=== PATIENT | female | born 1950 | race Caucasian/White ===

== ENCOUNTER 2020-10-21 14:53 | Observation (INO) ==
[2020-10-21] MEDS ORDERED: Ipratropium/Albuterol Neb 3 ML IH ONE (15:14)
[2020-10-21] MEDS ORDERED: methylPREDNISolone 125 MG/2 ML VIAL IVP ONE (15:14)
[2020-10-21 15:29] LABS: Basophils # 0.1 K/mcL (0.0-0.2); Basophils % 0.8 %; Eosinophils # 0.2 K/mcL (0.0-0.6); Eosinophils % 2.8 %; Hematocrit 40.4 % (35.3-44.9); Hemoglobin 13.4 g/dL (11.5-15.4); Immature Granulocytes % 0.6 % (0-4); Lymphocytes # 2.7 K/mcL (0.6-4.6); Lymphocytes % 32.2 %; Mean Corpuscular HGB Conc 33.2 g/dL (31.6-35.5); Mean Corpuscular Hemoglobin 29.7 pg (28.0-33.3); Mean Corpuscular Volume 89.6 fL (83.0-100.0); Mean Platelet Volume 10.5 fL (9.4-12.4); Monocytes # 0.7 K/mcL (0.0-1.3); Monocytes % 8.3 %; Neutrophils # 4.6 K/mcL (1.6-8.9); Platelet Count 247 K/mcL (140-400); Red Blood Count 4.51 M/mcL (3.82-4.97); Red Cell Distribution Width 13.2 % (11.5-14.5); Segmented Neutrophils % 55.3 %; White Blood Count 8.3 K/mcL (4.3-11.1)
[2020-10-21 15:44] LABS: BUN/Creatinine Ratio 17 (6-26); Blood Urea Nitrogen 15 mg/dL (8-23); Calcium 9.6 mg/dL (8.6-10.3); Carbon Dioxide 29 mEq/L (23-29); Chloride 100 mEq/L (98-107); Glucose 198 mg/dL (70-105); Osmolality,Calculated 294 (280-300); Potassium 3.8 mEq/L (3.5-5.1); Sodium 139 mEq/L (136-145); eGFR For African Americans > 60 (> 60); eGFR For Non-African Americans > 60 (> 60)
[2020-10-21 15:45] LABS: Prothrombin Time 11.6 Seconds (9.4-12.1)
[2020-10-21 15:45] LABS: ABG Base Excess 2 mEq/L (-2 to 3); ABG HCO3 27 mEq/L (21-27); ABG Oxygen Saturation 91 % (95-98); ABG PCO2 43 mmHg (35-45); ABG PH 7.41 pH Units (7.32-7.45); ABG PO2 62 mmHg (85-104); ABG TCO2 29 mEq/L (20-26)
[2020-10-21] MEDS ORDERED: Isovue-370 500 ML BOTTLE IVP ONE (15:55)
[2020-10-21] MEDS ORDERED: *HR* Heparin 5,000 UNIT/ML VIAL IVP ONE (16:38)
[2020-10-21] MEDS ORDERED: *HR* Heparin 5,000 UNIT/ML VIAL IVP PRN ×2 (16:38)
[2020-10-21] MEDS ORDERED: Heparin 25,000UNIT/250ML 1/2NS 25,000 UNIT/250 ML IV.SOLN IVC SCH (16:45)
[2020-10-21] MEDS: Heparin 25,000UNIT/250ML 1/2NS 25,000 UNIT/250 ML IV.SOLN IVC SCH (16:59)
[2020-10-21] MEDS ORDERED: Acetaminophen 325 MG TABLET PO PRN (17:12)
[2020-10-21] MEDS ORDERED: Ondansetron 4 MG/2 ML VIAL IVP PRN (17:12)
[2020-10-21] MEDS ORDERED: Naloxone 0.4 MG/ML INJ IVP PRN (17:12)
[2020-10-21] MEDS ORDERED: *HR* Dextrose 50 % in Water (Vial) 50 ML VIAL IVP PRN (17:25)
[2020-10-21] MEDS ORDERED: D5% in Water 1,000 ML IVC PRN (17:25)
[2020-10-21] MEDS ORDERED: Dextrose Gel 15 GM/37.5 ML TUBE PO PRN ×2 (17:25)
[2020-10-21] MEDS: Insulin LISPRO 300 UNITS/3 ML VIAL SUBQ SCH (18:11)
[2020-10-21] MEDS: Metoprolol 100 MG TABLET PO SCH (21:56)
[2020-10-21] MEDS ORDERED: Insulin LISPRO 300 UNITS/3 ML VIAL SUBQ SCH (22:00)
[2020-10-22] MEDS: Heparin 25,000UNIT/250ML 1/2NS 25,000 UNIT/250 ML IV.SOLN IVC SCH (05:48)
[2020-10-22 05:58] LABS: Basophils % 0.1 %; Hematocrit 41.8 % (35.3-44.9); Hemoglobin 13.7 g/dL (11.5-15.4); Immature Granulocytes % 0.6 % (0-4); Lymphocytes # 1.7 K/mcL (0.6-4.6); Lymphocytes % 19.3 %; Mean Corpuscular HGB Conc 32.8 g/dL (31.6-35.5); Mean Corpuscular Hemoglobin 29.1 pg (28.0-33.3); Mean Corpuscular Volume 88.7 fL (83.0-100.0); Monocytes # 0.3 K/mcL (0.0-1.3); Monocytes % 3.6 %; Neutrophils # 6.8 K/mcL (1.6-8.9); Platelet Count 274 K/mcL (140-400); Red Blood Count 4.71 M/mcL (3.82-4.97); Red Cell Distribution Width 13.1 % (11.5-14.5); Segmented Neutrophils % 76.4 %; White Blood Count 8.9 K/mcL (4.3-11.1)
[2020-10-22 06:20] LABS: BUN/Creatinine Ratio 18 (6-26); Blood Urea Nitrogen 13 mg/dL (8-23); Calcium 9.7 mg/dL (8.6-10.3); Carbon Dioxide 28 mEq/L (23-29); Chloride 98 mEq/L (98-107); Cholesterol 96 mg/dL (< 200); Glucose 260 mg/dL (70-105); HDL Cholesterol 48 mg/dL (40-59); LDL Cholesterol,Calculated 31 mg/dL (< 100); Magnesium 1.8 mg/dL (1.6-2.6); Osmolality,Calculated 291 (280-300); Sodium 136 mEq/L (136-145); Triglycerides 87 mg/dL (< 150); eGFR For African Americans > 60 (> 60); eGFR For Non-African Americans > 60 (> 60)
[2020-10-22 06:39] VITALS: BP 136/76
[2020-10-22] MEDS ORDERED: Famotidine 20 MG TABLET PO SCH (07:30)
[2020-10-22] MEDS: Insulin LISPRO 300 UNITS/3 ML VIAL SUBQ SCH ×2 (07:56→11:38)
[2020-10-22] MEDS: Metoprolol 100 MG TABLET PO SCH (07:56)
[2020-10-22] MEDS ORDERED: *HR* Metformin 500 MG TABLET PO SCH (08:00)
[2020-10-22] MEDS ORDERED: Furosemide 20 MG/2 ML VIAL IVP ONE (08:26)
[2020-10-22] MEDS ORDERED: *HR* Rivaroxaban 15 MG TABLET PO SCH (09:00)
[2020-10-22] MEDS ORDERED: amLODIPine 5 MG TABLET PO SCH (09:00)
== END 2020-10-22 15:52 | disposition home or self-care (01) ==
LOC: EMEROOPIK 14:53 → INPPIK 14:53
PROVIDERS: ADMIT Family Medicine; ATTEND Family Medicine